=== PATIENT | female | born 1950 | race Hispanic/Latino ===

== ENCOUNTER → 2017-02-19 | Outpatient (CLI) | payer MEDICARE ==
[~2017-02-19] MED LIST: AMOX-420 PO; ATOR10TA69 PO; LISI1TAB9 PO; MULT-1203 PO
== END | disposition home or self-care (01) ==
LOC: RAH 13:47
PROVIDERS: ATTEND Family Medicine
DX: Z12.31 Encounter for screening mammogram for malignant neoplasm of breast (principal)
CPT/HCPCS: 77067

== ENCOUNTER → 2018-02-23 | Outpatient (CLI) | payer OTHER | END | disposition home or self-care (01) | LOC: RAH 14:31 | PROVIDERS: ATTEND Family Medicine | DX: Z12.31 Encounter for screening mammogram for malignant neoplasm of breast (principal) | CPT/HCPCS: 77067 ==

== ENCOUNTER → 2019-02-24 | Outpatient (CLI) | payer OTHER ==
[~2019-02-24] MED LIST changes: +LISI1TAB32 PO; -LISI1TAB9 PO
== END | disposition home or self-care (01) ==
LOC: RAH 13:55
PROVIDERS: ATTEND Family Medicine
DX: Z12.31 Encounter for screening mammogram for malignant neoplasm of breast (principal)
CPT/HCPCS: 77067

== ENCOUNTER 2022-01-26 19:05 | Emergency (ER) | payer OTHER ==
[~2022-01-26] VITALS: Ht 160 cm; Wt 92.1 kg
[~2022-01-26 19:05] MED LIST changes: -LISI1TAB32 PO; +LISI1TAB49 PO
[2022-01-26 19:48] LABS: BASOPHILS % (AUTO) 0.3 % (0.0-5.0); EOSINOPHILS % (AUTO) 1.8 % (0.0-8.0); HEMATOCRIT 39.8 % (36-48); LYMPHOCYTES % (AUTO) 25.2 % (21.0-51.0); MEAN CORPUSCULAR HEMOGLOBIN 30.8 pg (27.0-33.0); MEAN CORPUSCULAR HGB CONC 33.7 g/dL (32.0-36.0); MEAN CORPUSCULAR VOLUME 91.5 fL (79-99); MONOCYTES % (AUTO) 7.4 % (3.0-13.0); NEUTROPHILS % (AUTO) 64.9 % (40.0-77.0); PLATELET COUNT (AUTO) 279 K/uL (130-400); RED BLOOD CELL COUNT(AUTO) 4.35 MIL/uL (4.00-5.50); WHITE BLOOD COUNT (AUTO) 9.3 K/uL (4.8-10.8)
[2022-01-26 20:09] LABS: APPEARANCE,URINE CLOUDY (CLEAR); BILIRUBIN,URINE NEGATIVE (NEGATIVE); COLOR,URINE LIGHT-YELLOW (YELLOW); GLUCOSE, URINE (UA) NEGATIVE (NEGATIVE); KETONES,URINE NEGATIVE (NEGATIVE); LEUKOCYTE ESTERASE ,URINE 500 Leu/uL (NEGATIVE); NITRATE,URINE NEGATIVE (NEGATIVE); PH,URINE 5.5 (5.0-8.0); PROTEIN,URINE NEGATIVE (NEGATIVE); UROBILINOGEN,URINE 0.2 mg/dL (0.2-1.0)
[2022-01-26 20:15] LABS: BACTERIA,URINE MOD /HPF (None Seen); MUCUS,URINE RARE LPF (None Seen); SQUAMOUS EPITHELIAL CELL,UR FEW /HPF (0-2); WBC,URINE 51-100 /HPF (0-1)
[2022-01-26 20:53] LABS: ALBUMIN 3.9 g/dL (3.5-5.0); CREATININE 0.9 mg/dL (0.5-1.5); POTASSIUM 3.7 mmol/L (3.5-5.1); TOTAL PROTEIN, SERUM 7.8 g/dL (6.0-8.3)
[2022-01-26] MEDS ORDERED: CEFTRIAXONE 1G VIAL IVP ONE (21:00)
[2022-01-26] MEDS ORDERED: LABETALOL 20MG SYG IV ONE ×2 (21:00→22:00)
[2022-01-26 22:42] VITALS: BP 156/62
[2022-01-26] MEDS ORDERED: LISINOPRIL 20 MG PO (23:33)
== END 2022-01-27 00:06 | disposition home or self-care (01) ==
LOC: EDH 19:05
DX: I10 Essential (primary) hypertension (principal); N30.00 Acute cystitis without hematuria; E78.00 Pure hypercholesterolemia, unspecified; Z90.49 Acquired absence of other specified parts of digestive tract
CPT/HCPCS: 99285; 96374; 96375; 84484; 80053; 85025; 87077; 87088; 87186; 81001; 36415; 96376; 93005; J0696

== ENCOUNTER 2022-01-27 10:00 | Emergency (ER) | payer OTHER ==
[~2022-01-27] VITALS: Ht 160 cm; Wt 90.7 kg
[~2022-01-27 10:00] MED LIST changes: +LISINOPRIL 20 MG PO
[2022-01-27 13:52] VITALS: BP 168/97
== END 2022-01-27 14:31 | disposition home or self-care (01) ==
LOC: EDH 10:00
DX: I10 Essential (primary) hypertension (principal); E78.00 Pure hypercholesterolemia, unspecified; Z90.49 Acquired absence of other specified parts of digestive tract

== ENCOUNTER → 2024-03-24 | Outpatient (CLI) | payer OTHER ==
--- NOTE | 2024-03-27 11:20 | HMCIMG ---
Exam Type: MAMMO SCREENING BILATERAL Clinical Information: ROUTINE SCREENING Comparison: February 27, 2022 Technique: Bilateral mammogram with CAD was performed with CC and MLO projections. FINDINGS: Breast parenchyma is predominantly fatty-replaced. No dominant mass or suspicious microcalcification identified. There is no nipple retraction or skin thickening. CAD shows no worrisome regions. IMPRESSION: 1. No mammographic signs of malignancy. 2. Routine follow-up recommended. CATEGORY 1: NEGATIVE Note: A negative x-ray should not delay biopsy if a dominant or clinically suspicious mass is present, since 8-10% of cancers are not identified by mammography.
== END | disposition home or self-care (01) ==
LOC: RAH 13:48
PROVIDERS: ATTEND Family Medicine
DX: Z12.31 Encounter for screening mammogram for malignant neoplasm of breast (principal)
CPT/HCPCS: 77067